=== PATIENT | female | born 1990 | race Caucasian/White ===

== ENCOUNTER 2017-06-14 19:03 | Outpatient (CLI) | payer MEDICAID ==
[~2017-06-14] VITALS: Ht 154.9 cm; Wt 57.9 kg
[~2017-06-14 19:03] MED LIST: FERR27TA; PREN1TAB17 PO; PREN1TAB49
[2017-06-14 19:43] VITALS: Ht 154.9 cm; Wt 57.9 kg
[2017-06-14 19:49] VITALS: BP 101/68; PULSE 57; RESP 18
--- NOTE | 2017-06-14 20:26 | RADRPT ---
PROCEDURE: US OB. CLINICAL INDICATION: labor, estimated weight. Clinical estimate gestational age is 36 weeks 3 days with estimated date of delivery 07/09/2017 TECHNIQUE: Multiple sonographic images of the pelvis were obtained. The images were reviewed on a PACS workstation. COMPARISON: Biophysical profile ultrasound of 06/14/2017 FINDINGS: There is a single live intrauterine gestation. Cardiac activity is present with 129 beats per minut e. There is a cephalic position. Measurements were made in order to determine age. The results are as follows: BPD =8.34 cm, with 33 weeks 4 days HC =30.72 cm, 34 weeks 2 days AC =32.88 cm, 36 weeks 6 days FL =7.09 cm, 36 weeks 2 days. Estimated gestational age of approximately 35 weeks 2 days. The estimated date of delivery is 07/17/2017. The EFW = 2828 g, 6 pounds 4 ounces, 41.7% . The placenta is fundal and grade II. There is no evidence for an abruption. There is a normal amount of amniotic fluid with an BLAYNE = 16.67 cm. IMPRESSION: Single live intrauterine gestation of approximately 35 weeks 2 days based on ultrasound measurements . The estimated date of delivery is 07/17/2017 . RPTAT: HJES .Juarez Carranza MD, Date Time Electronically viewed and signed by .Juarez Carranza MD, on 06/14/2017 20:26 .S/
--- NOTE | 2017-06-14 20:28 | RADRPT ---
PROCEDURE: Ultrasound Biophysical profile CLINICAL INDICATION: labor TECHNIQUE: Color and case-scale ultrasound images of an intrauterine gestation were obtained. COMPARISON: OB ultrasound of 06/14/2017 FINDINGS: A single live intrauterine gestation is identified in cephalic position with an estimated hear t rate of 129 beats per minute. The placenta is fundal and grade II. BLAYNE is 16.67 cm. movement 2/2. tone 2/2. breathing movement 2/2. Qualitative AFV 2/2 Total biophysical profile 02/08 IMPRESSION: 02/08 biophysical profile. RPTAT: HJES .Juarez Carranza MD, Date Time Electronically viewed and signed by .Juarez Carranza MD, on 06/14/2017 20:27 .S/
--- NOTE | 2017-06-15 00:38 | PN ---
Triage Information Date/Time June 14, 2017 Reason for visit: IUGR Weeks of Gestation 36 weeks /Para Diabetes: none Hypertention: none Objective Vital Signs Date Time Temp Pulse Resp B/P Pulse Ox O2 Delivery O2 Flow Rate FiO2 06/14/17 19:49 97.7 57 18 101/68 Room Air Heart Rate: 130's Heart Rate Comments Category I Contractions: None Results/Medications Imaging Results EFW AGA BPP 02/08 Disposition: Discharge Assessment/Plan No sign of IUGR Follow up in clinic in one week DILIA WHITLOCK MD Jun 15, 2017 00:38
--- NOTE | 2017-06-15 01:39 | TRIAGE ---
OB Triage Datetime Report Generated by CPN: 06/15/2017 01:38 Datetime: 06/14/2017 22:55 Stage of : OB Triage Datetime: 06/14/2017 22:34 Stage of : OB Triage Labor Evaluation Frequency: Irregular Monitor Mode: External Duration (sec)2399: 50-90 Quality: Mild Pattern: Normal: <= 5 Contractions in 10 Minutes Resting Tone [place]: Relaxed Heart Rate FHR Baseline Rate: 130 Monitor Mode: External US Variability: Moderate 6-25 bpm Accelerations: 15X15 Decelerations: None Category: Category I Datetime: 06/14/2017 22:00 Stage of : OB Triage Labor Evaluation Frequency: 2.5-10 Monitor Mode: External Duration (sec)2399: 40-120 Quality: Mild Pattern: Normal: <= 5 Contractions in 10 Minutes Resting Tone [place]: Relaxed Heart Rate FHR Baseline Rate: 125 Monitor Mode: External US FHR Baseline Changes: No Baseline Change Variability: Moderate 6-25 bpm Accelerations: 15X15 Decelerations: None Category: Category I Datetime: 06/14/2017 21:00 Stage of : OB Triage Labor Evaluation Frequency: 2.5-7 Monitor Mode: External Duration (sec)2399: 40-90 Quality: Mild Pattern: Normal: <= 5 Contractions in 10 Minutes Resting Tone [place]: Relaxed Heart Rate FHR Baseline Rate: 125 Monitor Mode: External US Variability: Moderate 6-25 bpm Accelerations: 15X15 Decelerations: None Category: Category I Datetime: 06/14/2017 20:00 Stage of : OB Triage Labor Evaluation Frequency: 2.5 Monitor Mode: External Duration (sec)2399: 50-110 Quality: Mild Pattern: Normal: <= 5 Contractions in 10 Minutes Resting Tone [place]: Relaxed Heart Rate FHR Baseline Rate: 130 Monitor Mode: External US Variability: Moderate 6-25 bpm Accelerations: 15X15 Decelerations: None Category: Category I Datetime: 06/14/2017 19:50 Stage of : OB Triage Datetime: 06/14/2017 19:48 Stage of : OB Triage Assessment Type: Triage Maternal Assessment Level of Consciousness: Fully Conscious DTR's/Clonus: DTRs 2+; No Clonus Headache: Denies Blurred Vision: No Respiratory Effort: Unlabored; Regular Rhythm; Equal Expansion Breath Sounds, Left: Clear and Equal Breath Sounds, Right: Clear and Equal Nausea/Vomiting: Denies RUQ Epigastric Pain: Denies Lower Extremities Edema: None Degree: None Upper Extremities Edema: None Degree: None Facial Edema: None Temperature Route: Oral Fall Risk Assessment History of Falling: (0) No Secondary Diagnosis: (0) No Ambulatory Aid: (0) Bedrest/Nurse Assist IV Therapy: (0) No Gait: (0) Normal/Bedrest/Immobile Mental Status: (0) Oriented to Own Ability Fall Score: 0 Fall Risk Score Definition: No Risk: No action required Pain Assessment Pain Scale: 0 Pain Presence: None/Denies Pain Type: N/A Datetime: 06/14/2017 19:46 Monitor Mode: External Contraction Comments: [place] applied Monitor Mode: External US Comments: EFM applied Datetime: 06/14/2017 19:40 Time of Arrival: 06/14/2017 19:00 EGA: 36.3 Arrived By: Ambulatory Arrived From: Office Chief Complaint: Sent from clinic for size<dates for EFW/BPP Movement: Present Contractions: Denies/Absent Rupture of Membranes: Denies Vaginal Bleeding: None Vaginal Discharge: Denies Abdominal Trauma: Not Applicable Patient Complaints: None Time Provider Notified: 06/14/2017 19:00 Provider Notified: (Annotations: Data stored by CPN on behalf of user) Initial Plan: U/S for EFW _ BPP
== END 2017-06-14 22:58 | disposition home or self-care (01) ==
LOC: OBT 19:03 → L-D 19:04 → OBT 22:58
PROVIDERS: ATTEND Obstetrics & Gynecology
DX: O36.5930 Maternal care for other known or suspected poor fetal growth, third trimester, not applicable or unspecified (principal); Z3A.36 36 weeks gestation of pregnancy
CPT/HCPCS: 76815; 76818; Z7500; G0463